=== PATIENT | male | born 1990 | race African-American/Black ===

== ENCOUNTER 2024-05-04 10:26 | Emergency (ER) | payer OTHER ==
[~2024-05-04] VITALS: Ht 180.3 cm; Wt 77.1 kg
[2024-05-04 11:02] VITALS: O2SAT 100
[2024-05-04] MEDS ORDERED: IPRATROPIUM BROMIDE (0.02%) 0.5MG/2.5ML NEB HHN STA (12:59)
[2024-05-04] MEDS ORDERED: DEXAMETHASONE 1MG TABLET PO ONE (13:00)
[2024-05-04] MEDS: ALBUTEROL (0.083%) 2.5MG/3ML NEB HHN SCH (14:00)
[2024-05-04] MEDS: IPRATROPIUM BROMIDE (0.02%) 0.5MG/2.5ML NEB HHN NR (14:09)
[2024-05-04 14:10] VITALS: PULSE 53; RESP 16
[2024-05-04] MEDS: DEXAMETHASONE 4MG TABLET PO NR (14:53)
[2024-05-04] MEDS ORDERED: ALBU6.7H15 INH (15:17)
[2024-05-04 15:27] VITALS: BP 135/73; PULSE 53; RESP 16; TEMP 36.72516; O2SAT 100
== END 2024-05-04 15:28 | disposition home or self-care (01) ==
LOC: ER 10:26 → EDBD 10:26 → ER 15:28
DX: J45.901 Unspecified asthma with (acute) exacerbation (principal); Z98.890 Other specified postprocedural states
CPT/HCPCS: 99285; J8540; Z7610 ×2; 94640